=== PATIENT | female | born 1960 | race Caucasian/White ===

== ENCOUNTER 2017-06-20 13:13 | Emergency (ER) | payer MEDICARE, OTHER ==
[~2017-06-20] VITALS: Ht 157.5 cm; Wt 120.2 kg
--- NOTE | ~2017-06-20 | CR97 ---
[facility] A Service of [facility] RADIOLOGY TEXT RESULTS PATIENT: PHILIPPE ROBERTO LOCATION: [facility] : 62 UNIT #: [id number] AGE: [address]: Darryl Masterson MD SEX: F ORDER DR: [id number] [facility] [address] [place], [place] [address] [id number] MR#: [id number] Acc #: [id number] NAME: PHILIPPE ROBERTO : 1960 SEX: F STUDY DATE/TIME: 06/20/2017 16:18 UNIT: [facility] ROOM: STUDY DESCRIPTION: CR Esophagram Attending Physician: Darryl Masterson M.D. Ordering Physician: Darryl Masterson M.D. Primary Care Physician: Bran Bee M.D. MEDICAL IMAGING REPORT This report is preliminary unless electronic signature is present EXAM Barium esophagram 06/20/2017 HISTORY Vomiting for 2 weeks with nausea and abdominal pain. Gastric banding. Possible lap band slippage. FINDINGS Fluoroscopic and radiographic evaluation of the esophagus with attention to the oropharynx and gastroesophageal junction was performed using liquid barium. Preliminary radiograph of the abdomen shows normal positioning of the gastric band in the left upper quadrant. The esophagus demonstrated a normal mucosal pattern and normal peristaltic activity. There is no gastroesophageal reflux or reflux esophagitis. No esophageal stricture or mass was seen. Barium passed freely through the gastric band without evidence of obstruction. Images of the oropharynx were normal. 32 spot film radiographs of the upper abdomen were obtained and 4.1 minutes of fluoroscopy time was utilized. IMPRESSION Normal barium esophagram status post gastric banding. There is no evidence to suggest slippage of the gastric banding. No obstruction of flow of contrast from the esophagus to the stomach. Dictated by... Girish Shah M.D. THIS IS AN ELECTRONICALLY VERIFIED REPORT Girish Shah M.D. at 06/23/2017 7:30 AM KRT/pcl [facility] A Service of [facility] RADIOLOGY TEXT RESULTS PATIENT: PHILIPPE ROBERTO LOCATION: [facility] : 62 UNIT #: [id number] AGE: [address]: Darryl Masterson MD SEX: F ORDER DR: TD: 06/21/2017 10:23 JOB #: [id number] MEDICAL IMAGING REPORT Page 1 of 1 COPY
[~2017-06-20 13:13] MED LIST: ANTI-DIARRHEAL2 M1 PO; BACTRIM DS TABL1 TA1 PO; CELEBREX PO; LISINOPRIL10 MG PO; NEXIUM PO
[2017-06-20 14:39] LABS: BASOPHIL# 0.1 X10e3 (0-0.3); BASOPHIL% 0.5 % (0-2.5); EOSINOPHIL# 0.2 X10e3 (0-0.7); EOSINOPHIL% 1.2 % (0.0-7.0); HEMOGLOBIN 11.8 gm/dL (12.0-16.0); LYMPHOCYTE# 4.2 X10e3 (1.0-3.5); LYMPHOCYTE% 28.2 % (17.0-45.0); MEAN CELL VOLUME 84.9 FL (83-96); MEAN CORPUSCULAR HEMOGLOBIN 27.8 PG (28-34); MEAN CORPUSCULAR HGB CONC 32.8 g/dL (30-36); MEAN PLATELET VOLUME 7.3 FL (6.5-11.5); MONOCYTE# 0.9 X10e3 (0-1.0); MONOCYTE% 5.8 % (3.0-12.0); NEUTROPHIL# 9.7 X10e3 (1.5-7.1); NEUTROPHIL% 64.3 % (40-75); PLATELET COUNT 694 X10e3 (140-420); RED BLOOD COUNT 4.24 X10e (3.90-5.30); RED CELL DISTRIBUTION WIDTH 15.6 % (11.0-15.5)
[2017-06-20 14:42] LABS: DIFF IND NO
[2017-06-20 14:53] LABS: URINE SOURCE CLEAN CATCH
[2017-06-20 15:01] LABS: URINE APPEARANCE CLOUDY; URINE BLOOD NEG (NEG); URINE COLOR DK YELLOW; URINE GLUCOSE NEG (NEG); URINE KETONE TRACE (NEG); URINE LEUKOCYTE ESTERASE NEG (NEG); URINE NITRATE NEG (NEG); URINE PROTEIN 2+ (NEG); URINE SPECIFIC GRAVITY 1.029 (1.003-1.035)
[2017-06-20 15:02] LABS: CULTURE INDICATED? YES; URINE BACTERIA AUWI NEG (NEGATIVE); URINE SQUAMOUS EPITHELIAL CELL MOD /[HPF]
[2017-06-20 15:02] LABS: ALBUMIN SERUM 3.8 g/dL (3.5-5.0); BILIRUBIN, DIRECT 0.1 mg/dL (0.0-0.2); BILIRUBIN,INDIRECT 0.3 mg/dL (0.0-0.9); BILIRUBIN,TOTAL 0.4 mg/dL (0.2-2.0); CALCIUM SERUM 9.4 mg/dL (8.4-10.2); GLOM FILT RATE Estimated 63.4 mL/min (>60); PROTEIN TOTAL SERUM 8.7 g/dL (6.0-8.3)
[2017-06-20 15:03] LABS: URINE BILIRUBIN NEG (NEG)
[2017-06-20 15:07] LABS: POTASSIUM 2.7 mmol/L (3.5-5.1)
== END 2017-06-20 18:56 | disposition home or self-care (01) ==
LOC: CED 13:13
DX: R10.13 Epigastric pain (principal); R11.2 Nausea with vomiting, unspecified; E87.6 Hypokalemia; K21.9 Gastro-esophageal reflux disease without esophagitis; I10 Essential (primary) hypertension; Z90.49 Acquired absence of other specified parts of digestive tract; Z90.710 Acquired absence of both cervix and uterus
CPT/HCPCS: 36415; 74220; 80048; 80076; 81003; 83690; 85025; 87086; 96361; 96374; 96375; 99284; J2270; J2405